=== PATIENT | male | born 1960 | race Caucasian/White ===

== ENCOUNTER 2016-06-19 00:29 | Emergency (ER) | payer BC, OTHER ==
[2016-06-19] MEDS ORDERED: METOPROLOL TARTRATE 50 MG TABLET (FP) PO STA (00:33)
[2016-06-19 00:43] VITALS: BP 205/93; PULSE 70; TEMP 98.4; BMI 36.7
[2016-06-19] MEDS ORDERED: NEBIVOLOL 5 MG TABLET (FP) PO ONE (01:33)
--- NOTE | 2016-06-19 01:37 | PDOC ---
[id number]: HTN Time Seen by Provider: 06/19/16 00:30 History Source: Patient Exam Limitations: No Limitations - History of Present Illness Initial Comments: 06/19/16 02:13 This is a 56-year-old male who comes in complaining of elevated blood pressure. Patient had his medications recently switched from by by bystolic to metoprolol and has missed one dose of his blood pressure medicine. Patient had his medication switched as he couldn't afford the deductible on his bystolic however he did not take his metoprolol because he was worried that it was making his blood pressure worse not better. Patient also was very anxious in the emergency room. I have a long discussion with the patient and explained to him the importance of taking either the bystolic or the metoprolol. In addition to that patient did have some Valium at home that he was able to take. Patient denied any chest pain, shortness of breath, headache, blurry vision, nausea. Patient was noted to be hyperventilating and did complain of some tingling in his hands and toes. PAST MEDICAL HISTORY: no significant history PAST SURGICAL HISTORY: no significant history FAMILY HISTORY: no pertinant history SOCIAL HISTORY: Pt lives with family and is employed. MEDICATIONS: reviewed ALLERGIES: As per nursing notes Review of Systems General: No fevers or chills, no weakness, no weight loss HEENT: No change in vision. No sore throat,. No ear pain CardioVascular: No chest pain or shortness of breath Respiratory:No cough, or wheezing. Gastrointestinal: no nausea, vomitting, diarrhea or constipation, No rectal bleeding Genitourinary: No dysuria, hematuria, or frequency Musculoskeletal: No joint or muscle pain or swelling Neurologic: No headache, vertigo, dizziness or loss of consciousness Psychiatric: nor depression Skin: No rashes or easy bruising Endocrine: no increased thirst or abnormal weight change Allergic: no skin or latex allergy All other systems reviewed and normal Exam: General: Well-nourished well-developed individual, no acute distress HEENT: Throat: Normal, tonsils normal, no erythema or exudate Neck: Supple, no meningeal signs, no lymphadenopathy Eyes::Pupils equal reactive and round, extraocular motion intact Chest: Nontender to palpation Cardiac: S1-S2 normal, regular rate and rhythm, no murmurs rubs or gallops Respiratory: Lungs clear to auscultation bilateral Abdomen: Soft, nondistended, normal bowel sounds, nontender to palpation diffusely Extremities: Warm, dry, no cyanosis, clubbing, or edema Skin: No rashes Neuro: Alert and oriented x3, nonfocal exam, grossly intact, normal gait Psych: Normal mood and affect Assessment and plan: This is a very anxious 56-year-old male who did not want to take any additional medication for an elevated blood pressure. I did finally convince him to take a bystolic tablets here in the emergency room and he said he would go home and take one of his Valiums. Patient was discharged and will follow-up with his primary care on Tuesday. Past History - Past Medical History Allergies/Adverse Reactions: Allergies Allergy/AdvReac Type Severity Reaction Status Date / Time Penicillins Allergy Verified 06/19/16 00:31 Home Medications: Ambulatory Orders Diazepam [Valium] 2.5 mg PO PRN PRN 06/19/16 Nebivolol [Bystolic -] 5 mg PO BID #60 tab 06/19/16 Nebivolol [Bystolic -] 5 mg PO DAILY 06/19/16 HTN: Yes Psychiatric Problems: Yes (ANXIETY) - Psycho/Social/Smoking Cessation Hx Anxiety: Yes Suicidal Ideation: No Smoking History: Never smoked *Physical Exam - Vital Signs Last Vital Signs Temp Pulse Resp BP Pulse Ox 98.4 F 70 18 205/93 100 06/19/16 00:30 06/19/16 00:30 06/19/16 00:30 06/19/16 00:30 06/19/16 00:30 *DC/Admit/Observation/Transfer Diagnosis at time of Disposition: Hypertension Qualifiers: Hypertension type: essential hypertension Qualified Code(s): I10 - Essential ( primary) hypertension - Discharge Dispostion Disposition: HOME Condition at time of disposition: Stable Admit: No - Prescriptions Prescriptions: Nebivolol [Bystolic -] 5 mg PO BID #60 tab - Patient Instructions Additional Instructions: Restart your diastolic tomorrow morning you were given one by systolic tonight in the ER. When you get home tonight take one half of a tablet of your Valium. Do not repeat her blood pressure in tell tomorrow morning. Return to the emergency department immediately with ANY new, persistent or worsening symptoms. Continue any medications as previously prescribed by your physician. You should follow up with your primary doctor as soon as possible regarding today's emergency department visit. . Please make sure your doctor reviews the results of your emergency evaluation. Thank you for coming to the Emergency Department today for your care. It was a pleasure to see you today. Please note that your evaluation is INCOMPLETE until you follow-up with your doctor.
== END 2016-06-19 01:45 | disposition home or self-care (01) ==
LOC: FER 00:29
DX: I10 Essential (primary) hypertension (principal); F41.9 Anxiety disorder, unspecified
CPT/HCPCS: 99281-25